=== PATIENT | male | born 2000 | race Two or more races ===

== ENCOUNTER 2019-02-06 20:38 | Emergency (ER) | payer OTHER ==
[2019-02-06] MEDS ORDERED: methylPREDNISolone Sod Succ/PF 125 MG/2 ML VIAL ONE (22:02)
--- NOTE | 2019-02-06 22:18 | RAD ---
PA AND LATERAL CHEST X-RAY 02/06/19 HISTORY: Dyspnea. Difficulty breathing since yesterday. History of asthma. Patient also reports right shoulder pain and chest pain when inhaling. FINDINGS: The cardiac silhouette and pulmonary vasculature are within normal limits. The lungs are clear. No pn eumothorax or pleural effusion seen. Osseous structures are intact. IMPRESSION: No acute cardiopulmonary process. POS: [id number]
== END 2019-02-06 23:23 | disposition home or self-care (01) ==
LOC: ERS 20:38
DX: J45.901 Unspecified asthma with (acute) exacerbation (principal); F17.210 Nicotine dependence, cigarettes, uncomplicated
CPT/HCPCS: 71046; 94640; 96361; 96374; J2930; J7620

== ENCOUNTER 2019-12-31 18:47 | Emergency (ER) | payer OTHER ==
[2019-12-31] MEDS ORDERED: Dexamethasone 10 MG/ML VIAL ONE (20:31)
== END 2019-12-31 20:49 | disposition home or self-care (01) ==
LOC: ERS 18:47
DX: L50.9 Urticaria, unspecified (principal); J45.909 Unspecified asthma, uncomplicated; F32.9 Major depressive disorder, single episode, unspecified; F17.210 Nicotine dependence, cigarettes, uncomplicated
CPT/HCPCS: 99282; J1100